=== PATIENT | male | born 1965 | race African-American/Black ===

== ENCOUNTER 2021-02-07 05:31 | Inpatient (IN) ==
[~2021-02-07 05:31] MED LIST: ACETAMINOPHEN 500 MG TABLET PO ONE; FAMOTIDINE 20 MG TABLET PO ONE; GABAPENTIN 400 MG CAPSULE PO ONE
[2021-02-07] MEDS ORDERED: GABAPENTIN 400 MG CAPSULE ONE (06:09)
[2021-02-07] MEDS ORDERED: DIAZEPAM 5 MG TABLET ONE (06:09)
[2021-02-07] MEDS ORDERED: ACETAMINOPHEN 500 MG TABLET ONE (06:10)
[2021-02-07] MEDS ORDERED: FAMOTIDINE 20 MG TABLET ONE (06:10)
[2021-02-07] MEDS ORDERED: VANCOMYCIN INJ 1,000 MG in SODIUM CHLORIDE 0.9% 250 ML IV ONE (06:30)
[2021-02-07] MEDS: LACTATED RINGERS 1,000 ML IV SCH (06:39)
[2021-02-07] MEDS ORDERED: BUPIVACAINE SPINAL 0.75% 2 ML AMP SPINAL ONE (06:44)
[2021-02-07] MEDS ORDERED: KETAMINE 500 MG/10 ML VIAL ONE (06:44)
[2021-02-07] MEDS ORDERED: MIDAZOLAM 2 MG/2 ML VIAL ONE (06:44)
[2021-02-07] MEDS ORDERED: propofoL 200 MG/20 ML VIAL IV ONE ×3 (06:44→09:47)
[2021-02-07] MEDS ORDERED: LIDOCAINE 2% 5 ML VIAL ONE (06:44)
[2021-02-07] MEDS ORDERED: fentaNYL 100 MCG/2 ML VIAL ONE (06:44)
[2021-02-07] MEDS ORDERED: ACETAMINOPHEN INJ 0 MG/0 ML VIAL IV ONE (06:44)
[2021-02-07] MEDS ORDERED: SODIUM CHLORIDE 0.9% 0 ML IV ONE (06:44)
[2021-02-07] MEDS ORDERED: BUPIVACAINE MPF 0.25% 30 ML VIAL ONE (06:55)
[2021-02-07] MEDS ORDERED: DEXAMETHASONE 4 MG/1 ML VIAL ONE (06:55)
[2021-02-07] MEDS ORDERED: ONDANSETRON 4 MG/2 ML VIAL IV PRN (07:04)
[2021-02-07] MEDS ORDERED: LACTULOSE 20 GM/30 ML UDCUP PO PRN (07:04)
[2021-02-07] MEDS ORDERED: BISACODYL 10 MG SUPP RECTAL PRN (07:04)
[2021-02-07] MEDS ORDERED: diphenhydrAMINE CAP 25 MG CAPSULE PO PRN (07:04)
[2021-02-07] MEDS ORDERED: TEMAZEPAM 7.5 MG CAPSULE PO PRN (07:04)
[2021-02-07] MEDS ORDERED: PROMETHAZINE 25 MG/1 ML VIAL IM PRN (07:04)
[2021-02-07] MEDS ORDERED: MAGNESIUM HYDROXIDE SUSP 30 ML UDCUP PO PRN (07:04)
[2021-02-07] MEDS ORDERED: DEXTROSE 50% 25 GM/50 ML VIAL IV PRN ×2 (07:07→16:12)
[2021-02-07] MEDS ORDERED: GLUCAGON 1 MG VIAL IM PRN ×2 (07:07→16:12)
[2021-02-07] MEDS ORDERED: KETOROLAC 30 MG/1 ML VIAL ONE (08:02)
[2021-02-07] MEDS ORDERED: TRANEXAMIC ACID 1,000 MG/10 ML VIAL ONE (08:02)
[2021-02-07] MEDS ORDERED: SODIUM CHLORIDE 0.9% 250 ML IV ONE (09:47)
[2021-02-07] MEDS ORDERED: SODIUM CHLORIDE 0.9% 100 ML IV ONE (09:47)
[2021-02-07] MEDS ORDERED: LACTATED RINGERS 1,000 ML IV ONE (09:48)
[2021-02-07] MEDS: HYDROmorphone 2 MG/1 ML VIAL IV PRN ×2 (13:20→15:15)
[2021-02-07] MEDS ORDERED: hydrALAZINE 20 MG/1 ML VIAL ONE (13:37)
[2021-02-07] MEDS ORDERED: hydrALAZINE 20 MG/1 ML VIAL IV ONE ×2 (13:40→14:00)
[2021-02-07] MEDS ORDERED: LABETALOL 20 MG/4 ML SYRINGE IV ONE (14:36)
[2021-02-07] MEDS: ceFAZolin 2,000 MG/50 ML DUPLEX IV SCH ×2 (15:33→22:01)
[2021-02-07] MEDS: LOSARTAN 50 MG TABLET PO SCH (17:02)
[2021-02-07] MEDS: CELECOXIB 200 MG CAPSULE PO SCH (17:02)
[2021-02-07] MEDS: hydroCHLOROthiazide 12.5 MG CAPSULE PO SCH (17:02)
[2021-02-07] MEDS: INSULIN REGULAR 100 UNIT/ML SUBCUT SCH ×4 (17:03→23:41)
[2021-02-07] MEDS: glipiZIDE 5 MG TABLET PO SCH (18:27)
[2021-02-07] MEDS: metFORMIN 500 MG TABLET PO SCH (18:27)
[2021-02-07] MEDS: DOCUSATE SODIUM 100 MG CAPSULE PO SCH (21:59)
[2021-02-07] MEDS: SIMVASTATIN 10 MG TABLET PO SCH (21:59)
[2021-02-07] MEDS: FONDAPARINUX 2.5 MG/0.5 ML SYRINGE SUBCUT SCH (22:00)
[2021-02-07] MEDS: MORPHINE 4 MG/1 ML VIAL IV PRN (22:11)
[2021-02-08] MEDS: MORPHINE 4 MG/1 ML VIAL IV PRN ×3 (02:21→23:48)
[2021-02-08 06:25] LABS: Basophils % 0.4 % (0.0-0.8); Eosinophils # 0.1 10*3/uL (0.0-0.87); Eosinophils % 0.7 % (0.00-10.9); Hematocrit 41.6 VOL% (42.0-52.0); Hemoglobin 13.7 GM/DL (14.0-18.0); Immature Granulocytes % 0.4 %; Immature Granulocytes Absolute 0.04 #; Lymphocytes # 2.4 10*3/uL (1.4-4.0); Lymphocytes % 22.1 % (21.2-54.2); Mean Corpuscular HGB Conc 32.9 GM/DL (32-36); Mean Corpuscular Volume 88.9 FL (87-102); Mean Platelet Volume 10.3 FL (9.6-12.0); Neutrophils % 66.4 % (38.7-73.9); Platelet Count 212 T/CUMM (130-400); Red Blood Count 4.68 MC/CUMM (3.8-5.5); White Blood Count 10.7 T/CUMM (4-12)
[2021-02-08 06:39] LABS: Calcium 8.8 MG/DL (8.5-10.1); Osmolality,Calculated 272.2 MOS/KG (273-304); Potassium 3.6 MMOL/L (3.5-5.1)
[2021-02-08] MEDS: LACTATED RINGERS 1,000 ML IV SCH (08:38)
[2021-02-08] MEDS: CELECOXIB 200 MG CAPSULE PO SCH (09:49)
[2021-02-08] MEDS: LOSARTAN 50 MG TABLET PO SCH (09:50)
[2021-02-08] MEDS: INSULIN REGULAR 100 UNIT/ML SUBCUT SCH ×4 (09:50→21:23)
[2021-02-08] MEDS: hydroCHLOROthiazide 12.5 MG CAPSULE PO SCH (09:50)
[2021-02-08] MEDS: glipiZIDE 5 MG TABLET PO SCH ×2 (09:50→16:18)
[2021-02-08] MEDS: DOCUSATE SODIUM 100 MG CAPSULE PO SCH ×2 (09:50→21:22)
[2021-02-08] MEDS: metFORMIN 500 MG TABLET PO SCH ×2 (09:51→16:18)
[2021-02-08] MEDS: FONDAPARINUX 2.5 MG/0.5 ML SYRINGE SUBCUT SCH (17:48)
[2021-02-08] MEDS: SIMVASTATIN 10 MG TABLET PO SCH (21:22)
[2021-02-09] MEDS: CELECOXIB 200 MG CAPSULE PO SCH (09:07)
[2021-02-09] MEDS: glipiZIDE 5 MG TABLET PO SCH ×2 (09:07→16:07)
[2021-02-09] MEDS: DOCUSATE SODIUM 100 MG CAPSULE PO SCH ×2 (09:07→20:45)
[2021-02-09] MEDS: LOSARTAN 50 MG TABLET PO SCH (09:07)
[2021-02-09] MEDS: INSULIN REGULAR 100 UNIT/ML SUBCUT SCH ×4 (09:08→20:46)
[2021-02-09] MEDS: metFORMIN 500 MG TABLET PO SCH ×2 (09:08→16:07)
[2021-02-09] MEDS: hydroCHLOROthiazide 12.5 MG CAPSULE PO SCH (09:08)
[2021-02-09] MEDS: FONDAPARINUX 2.5 MG/0.5 ML SYRINGE SUBCUT SCH (17:55)
[2021-02-09] MEDS: SIMVASTATIN 10 MG TABLET PO SCH (20:45)
[2021-02-10] MEDS: DOCUSATE SODIUM 100 MG CAPSULE PO SCH (08:46)
[2021-02-10] MEDS: glipiZIDE 5 MG TABLET PO SCH (08:46)
[2021-02-10] MEDS: hydroCHLOROthiazide 12.5 MG CAPSULE PO SCH (08:46)
[2021-02-10] MEDS: CELECOXIB 200 MG CAPSULE PO SCH (08:46)
[2021-02-10] MEDS: LOSARTAN 50 MG TABLET PO SCH (08:46)
[2021-02-10] MEDS: metFORMIN 500 MG TABLET PO SCH (08:47)
[2021-02-10] MEDS: INSULIN REGULAR 100 UNIT/ML SUBCUT SCH (10:14)
[2021-02-10] MEDS: FONDAPARINUX 2.5 MG/0.5 ML SYRINGE SUBCUT SCH (10:59)
[2021-02-10 11:21] VITALS: BP 128/76
== END 2021-02-10 12:20 | disposition home health service (06) | DRG 470 ==
LOC: N.OR 05:31 → N.SDSINP 05:38 → N.3E 15:56
PROVIDERS: ADMIT Orthopaedic Surgery; ATTEND Orthopaedic Surgery